=== PATIENT | female | born 1995 | race Caucasian/White ===

== ENCOUNTER 2018-05-09 16:02 | Outpatient (REF) | payer OTHER, SELFPAY ==
--- NOTE | 2018-05-09 15:20 | PAPFT_PTH ---
PATIENT: Rosi Rodriguez LOC: [facility] U#:[id number] AGE/SX: 22/F ROOM: RE05/09/[address]: PIERO Mc : 1995 BED: DIS: 05/09/2018 SPEC #: [id number] RECD: 05/09/18 17:37 STATUS: TERESA REJw #: [id number] DAVID: 05/09/18 15:[address]: Loretta Lopez DEPT: [facility] Cytology RECD BY: Carolann Monterroso ENTERED: 05/09/18 17:37 SP TYPE: PAPFT OTHR DR: Rosi Figueroa Tissues: 1 - CX/ENDOCX FOR PAP SMEARS Procedures: PAP THIN PREP/UVM Screening Comments: [id number]
== END 2018-05-09 16:22 ==
LOC: LBN 16:02
PROVIDERS: PCP Nurse Practitioner Family; Visit Provider Nurse Practitioner Family
DX: Z12.4 Encounter for screening for malignant neoplasm of cervix (principal)
CPT/HCPCS: 88142

== ENCOUNTER 2018-05-13 16:09 | Outpatient (REF) | payer OTHER, SELFPAY ==
[2018-05-13 21:45] LABS: Iron 44 ug/dL (50-175); Total Iron Binding Capacity 403 ug/dL (250-450); Transferrin Sat 11 % (15-50)
[2018-05-13 21:59] LABS: Ferritin 18 ng/mL (8-388); Glucose 85 mg/dL (70-100); TSH (W/Ref FT4) 3.11 uIU/mL (0.358-3.74)
[2018-05-13 22:05] LABS: Abs Immature Grans 0.04 k/cumm (0.0-0.09); Absolute Eosinophil Count 0.24 k/cumm (0.0-0.7); Absolute Lymphocyte Count 2.86 k/cumm (1.2-3.4); Absolute Monocyte Count 0.67 k/cumm (0.11-0.7); Basophils % 0.5; Eosinophils % 2.2; HCT 40.4 % (36.0-46.0); HGB 13.1 g/dL (12.0-15.5); Immature Grans % 0.4; Lymphocytes % 25.7; Mean Corp. HGB Concentration 32.4 g/dL (32.0-36.0); Mean Corpuscular Hemoglobin 30.3 pg (27.0-33.0); Mean Corpuscular Volume 93.5 fL (80-95); Mean Platelet Volume 11.3 fL (8.0-11.0); Neutrophils % 65.2; Platelet Count 253 x1000/uL (130-400); RBC 4.32 m/cumm (4.00-5.20); RBC Distribution Width 12.4 % (11.7-14.6); White Blood Cell Count 11.11 k/cumm (4.4-10.8)
[2018-05-13 22:19] LABS: Absolute Basophil Count 0.06 k/cumm (0.0-0.2); Absolute Neutrophil Count 7.24 k/cumm (1.2-6.7)
== END 2018-05-13 16:29 ==
LOC: NCHCN 16:09
PROVIDERS: PCP Nurse Practitioner Family; Visit Provider Nurse Practitioner Family
DX: E16.2 Hypoglycemia, unspecified (principal); K30 Functional dyspepsia; R07.9 Chest pain, unspecified; R53.83 Other fatigue; J31.0 Chronic rhinitis; J30.9 Allergic rhinitis, unspecified; F41.8 Other specified anxiety disorders; G43.909 Migraine, unspecified, not intractable, without status migrainosus
CPT/HCPCS: 82947; 82728; 83540; 83550; 84443; 85025

== ENCOUNTER 2018-07-12 16:25 | Outpatient (REF) | payer OTHER, SELFPAY ==
[2018-07-12 22:01] LABS: Iron 88 ug/dL (50-175)
== END 2018-07-12 16:45 ==
LOC: NCHCN 16:25
PROVIDERS: PCP Nurse Practitioner Family; Visit Provider Nurse Practitioner Family
DX: E61.1 Iron deficiency (principal); E16.2 Hypoglycemia, unspecified; R07.9 Chest pain, unspecified; K30 Functional dyspepsia
CPT/HCPCS: 83540

== ENCOUNTER 2019-06-15 13:24 | Outpatient (RCR) | payer OTHER, SELFPAY ==
[2019-06-15 15:01] LABS: ALT 17 U/L (14-59); AST 17 U/L (15-37); Albumin 4.2 g/dL (3.4-5.0); Alkaline Phosphatase 72 U/L (46-116); Anion Gap 11.3 mmol/L (3-11); BUN 12 mg/dL (7-18); Bilirubin, Total 0.3 mg/dL (0.2-1.0); CO2 25.7 mmol/L (21.0-32.0); CREATININE 0.93 mg/dL (0.55-1.02); Calcium 8.9 mg/dL (8.5-10.1); Chloride 105 mmol/L (98-107); Glucose 111 mg/dL (74-106); Potassium 3.7 mmol/L (3.5-5.1); Sodium 142 mmol/L (136-145); TSH (W/Ref FT4) 2.05 uIU/mL (0.36-3.74); Total Protein 7.4 g/dL (6.4-8.2); Vitamin B12 465 pg/mL (193-986)
[2019-06-15 15:03] LABS: Abs Immature Grans 0.01 k/cumm (0.0-0.09); Absolute Basophil Count 0.06 k/cumm (0.0-0.2); Absolute Eosinophil Count 0.17 k/cumm (0.0-0.7); Absolute Lymphocyte Count 2.44 k/cumm (1.2-3.4); Absolute Monocyte Count 0.42 k/cumm (0.11-0.7); Absolute Neutrophil Count 4.29 k/cumm (1.2-6.7); Basophils % 0.8; Eosinophils % 2.3; HCT 41.5 % (36.0-46.0); HGB 13.7 g/dL (12.0-15.5); Immature Grans % 0.1; Mean Corpuscular Hemoglobin 30.4 pg (27.0-33.0); Monocytes % 5.7; Neutrophils % 58.1; Platelet Count 257 x1000/uL (130-400); RBC 4.51 m/cumm (4.00-5.20); RBC Distribution Width 12.4 % (11.7-14.6); White Blood Cell Count 7.39 k/cumm (4.4-10.8)
[2019-06-15 15:16] LABS: Hemoglobin A1C 5.2 % (4.5-6.2)
[2019-06-15 15:17] LABS: Iron 68 ug/dL (50-170); Total Iron Binding Capacity 330 ug/dL (250-450); Transferrin Sat 21 % (15-50)
== END 2019-07-04 23:59 | disposition home or self-care (01) ==
LOC: INF 13:24
PROVIDERS: PCP Nurse Practitioner Family; Visit Provider Nurse Practitioner Family
DX: R42 Dizziness and giddiness (principal); R25.1 Tremor, unspecified; R07.9 Chest pain, unspecified; R53.83 Other fatigue; K30 Functional dyspepsia
CPT/HCPCS: 36415; 80053; 82607; 83036; 83540; 83550; 83735; 84443; 85025

== ENCOUNTER 2019-07-14 16:44 | Outpatient (REF) | payer OTHER, SELFPAY | END 2019-07-14 17:04 | LOC: LBN 16:44 | PROVIDERS: PCP Nurse Practitioner Family; Visit Provider Nurse Practitioner Family | DX: R30.0 Dysuria (principal) | CPT/HCPCS: 87086 ==

== ENCOUNTER 2019-08-10 15:35 | Outpatient (REF) | payer OTHER, SELFPAY ==
--- NOTE | 2019-08-10 15:00 | ENDOMET_PTH ---
PATIENT: Rosi Rodriguez LOC: [facility] U#:[id number] AGE/SX: 23/F ROOM: RE08/10/[address]: Marques Barr MD : 1995 BED: DIS: 08/10/2019 SPEC #: [id number] RECD: 08/10/19 16:12 STATUS: TERESA REQ #: [id number] DAVID: 08/10/19 15:[address]: Marques Barr DEPT: Surgical Specimen RECD BY: Carolann Monterroso ENTERED: 08/10/19 16:13 SP TYPE: Endomet OTHR DR: Rosi Figueroa Tissues: 1 - ENDOMETRIUM BX/EMIL Procedures: GROSS AND MICRO LEVEL 4 Comments: [id number]
== END 2019-08-10 15:55 ==
LOC: LBN 15:35
PROVIDERS: PCP Nurse Practitioner Family; Visit Provider Obstetrics & Gynecology
DX: N85.00 Endometrial hyperplasia, unspecified (principal); N93.9 Abnormal uterine and vaginal bleeding, unspecified
CPT/HCPCS: 88305

== ENCOUNTER 2019-08-14 10:21 | Outpatient (RCR) | payer OTHER, SELFPAY ==
[2019-08-14 13:29] LABS: Abs Immature Grans 0.02 k/cumm (0.0-0.09); Absolute Basophil Count 0.05 k/cumm (0.0-0.2); Absolute Eosinophil Count 0.18 k/cumm (0.0-0.7); Absolute Monocyte Count 0.46 k/cumm (0.11-0.7); Absolute Neutrophil Count 5.33 k/cumm (1.2-6.7); Basophils % 0.6; Eosinophils % 2.2; HCT 38.2 % (36.0-46.0); HGB 12.5 g/dL (12.0-15.5); Immature Grans % 0.2 %; Lymphocytes % 25.8; Mean Corp. HGB Concentration 32.7 g/dL (32.0-36.0); Mean Corpuscular Hemoglobin 30.6 pg (27.0-33.0); Mean Corpuscular Volume 93.6 fL (80-95); Mean Platelet Volume 11.3 fL (8.0-11.0); Monocytes % 5.7; Neutrophils % 65.5; Platelet Count 260 x1000/uL (130-400); RBC 4.08 m/cumm (4.00-5.20); RBC Distribution Width 12.6 % (11.7-14.6); White Blood Cell Count 8.14 k/cumm (4.4-10.8)
[2019-08-14 14:45] LABS: PTT Activated 26.4 sec (21.0-31.4); Prothrombin Time 10.3 sec (9.3-11.0)
== END 2019-09-02 23:59 | disposition home or self-care (01) ==
LOC: INF 10:21
PROVIDERS: PCP Nurse Practitioner Family; Visit Provider Obstetrics & Gynecology
DX: N93.8 Other specified abnormal uterine and vaginal bleeding (principal)
CPT/HCPCS: 36415; 85027; 85007; 85576; 85610; 85730

== ENCOUNTER 2019-09-15 07:53 | Emergency (ER) | payer OTHER, SELFPAY ==
[2019-09-15 08:04] VITALS: BP 118/65; PULSE 120; RESP 15; TEMP 36.6; O2SAT 97
--- NOTE | 2019-09-15 08:14 | DI.US_ITS ---
EXAM: US LOWER EXTREMITY VENOUS LT CLINICAL HISTORY: leg pain TECHNIQUE: Left lower extremity venous ultrasound performed using grayscale, color-flow, and spectra l Doppler analysis. COMPARISON: No exams were available for comparison FINDINGS: The left common femoral, femoral and popliteal veins demonstrate normal compressibility, augmentation , and color Doppler. The posterior tibial veins are patent. The saphenofemoral junction is unremarkab le. No evidence of a muller cyst. IMPRESSION: No DVT. DATA REPOSITORY:
--- NOTE | 2019-09-15 08:17 | W.ED.GENAD ---
Discharge Plan Disposition Patient Disposition: HOME Condition: Stable Discharge Details Chief Complaint: GenMedical Clinical Impression: Left leg pain Primary Care Provider: Rosi Figueroa ED Provider: Alejandra Tam Home Meds and New Rx's Prescriptions: No Action topiramate [Topamax] 25 mg tablet 25 mg PO HS PRNRF: 0 multivitamin [Daily Multiple] 1 EACH tablet 1 ea PO DAILY RF: 0 epinephrine [EpiPen 2-Bhavesh] 0.3 MG/0.3 ML auto-injector 0.3 mg IM PRN PRNRF: 0 Claritin-D 12 Hour 5-120 mg tablet extended release 12 hr 1 tab PO DAILY PRN (Reason: allergy symptoms) RF: 0 Discharge Instructions Instructions: Leg Pain (ED) Additional Instructions: Follow up with primary care provider in 3-5 days. Return to ED sooner if any worsening or concerns. Increase oral fluids. Please take Tylenol or Ibuprofen with food every 4-6 hours as needed for pain and swelling. Try ice, stretches. Referrals: Rosi Figueroa [Primary Care Provider] - Medical Decision Making 23-year-old female presents with left posterior thigh pain which is gotten worse over the last 2 days patient states that she had a hard time sleeping last night due to the pain. She denies any trauma heavy lifting or swelling. Initial work-up includes x-ray and an ultrasound to rule out DVT. 0900: Spoke with Elissa and trell who reports preliminary ultrasound result of negative for DVT, superficial thrombosis, or Willson's cyst. No edema. X-rays obtained and I have personally viewed them and showed no acute pathology or fracture or dislocation. Patient to be discharged home with instructions to take ibuprofen or Tylenol every 4-6 hours as needed for pain, apply ice if needed and do stretches. Strict return instructions given, verbalized understanding. Differential diagnosis includes muscle strain, DVT, Delmi Lockhart, occult fracture, osteoarthritis to the hip. EXAM: XR FEMUR LT CLINICAL HISTORY: leg pain. TECHNIQUE: 2D digital imaging was performed. COMPARISON: No exams were available for comparison FINDINGS: BONES: No acute fracture is present. No bony destructive lesion is seen. Visualized portion of knee and hip joints are unremarkable. SOFT TISSUE: Normal. IMPRESSION: Unremarkable radiographs of the left femur. HPI General Mode of arrival: ambulatory. Date/Time Provider Initiated Documentation: 09/15/19 08:01. Limitations to Documentation: no limitations. Information obtained by: patient. HPI Narrative: 23-year-old female presents with left posterior thigh pain which has gotten worse over the last couple days. Patient denies any injury, long trips. She is not on control and she does occasionally smoke. She denies any swelling. She denies any back pain or heavy lifting. There is no lesion or swelling noted she states that pain gets worse upon standing. Related Data Home Medications Medication Instructions Recorded Confirmed multivitamin [Daily Multiple] 1 ea PO DAILY 01/14/17 09/15/19 epinephrine [EpiPen 2-Bhavesh] 0.3 mg IM PRN PRN 04/05/17 09/15/19 loratadine 5 mg-pseudoephedrine ER 1 tab PO DAILY PRN 07/14/19 09/15/19 120 mg tablet,extended release,12hr topiramate 25 mg tablet 25 mg PO HS PRN tab-cap 07/14/19 09/15/19 Allergies Allergy/AdvReac Type Severity Reaction Status Date / Time apple Allergy Intermediate Verified 09/15/19 08:07 banana Allergy Mild Verified 09/15/19 08:07 luna Allergy Mild Verified 09/15/19 08:07 No Known Drug Allergies Allergy Verified 09/15/19 08:07 Environmental Allergy Mild Watery, Uncoded 09/15/19 08:07 itchy eyes, sneezing General Stated Complaint: GenMedical LISA: 3 Review of Systems Narrative: Constitutional: Negative for weight loss, alert and oriented, well groomed, normal body habitus, appears comfortable. HEENT: Denies trauma, headaches, blurry vision, nasal discharge, sore throat, trouble swallowing. Chest: Denies chest pain, palpitations, irregular rhythm, hypertension. Respiratory: Denies Shortness of breath, cough, hemoptysis. GI: Denies abdominal pain, nausea, vomiting, diarrhea, constipation. : Denies dysuria, hematuria, flank pain, rectal bleeding. Neuro: Denies dizziness, blurry vision, weakness, syncope, headache or facial numbness. Hematologic: Denies easy bruising, intolerance to heat or cold, hair loss. [facility] Medical History Contraception (Acute 07/23/16) Migraines (Chronic) Tobacco use (Acute 09/07/14) Surgical History section (03/06/16) distress 2nd stage Cyst Removal on Foot Family History Mother Uterine cancer Grandfather Alzheimer's dementia Grandmother Breast cancer Great Grandfather Alzheimer's dementia Grandfather Heart disease Paternal Aunt Heart disease Paternal Uncle Heart disease Paternal Grandmother Myocardial infarction Social History Smoking/Tobacco Use Status: Former Tobacco Use Alcohol Intake: current Alcohol Intake frequency: holidays/special occasions only Drug use: Never Substance use type: does not use Seatbelt use: always Do you feel safe at home: Yes Do you feel safe in your relationship?: Yes History History 1 Para 1 Hx # Term Pregnancies Multiple births Hx # Pregnancies Ectopic pregnancies AB induced Hx Number of Living Children AB spontaneous Exam Narrative Exam Narrative: Constitutional: Allert and oriented x3. Appears stated age. Normal body habitus. Head: Normocephalic, no trauma. Eyes: Pupils PERRLA, Red reflex noted, EOM's intact. Eyelids symmetrical withour lesions, discharge, or swelling. ENT: Bilateral TM's WNL, External ear normal to inspection, no mastoid TTP, swelling, or erythema, Nasal turbinates WNL, no nasal discharge. Normal dentition, Posterior pharynx WNL, no exudate. Chest: RRR, Normal S1, S2, distal pulses intact. Resp: Lungs clear to auscultation bilaterally, no wheezes, rales, or rhonchi. Musculoskeletal: Normal gait, 5/5 strength to all four extremities. Distal pedal pulses intact no erythema or swelling noted no deformity or trauma. Skin: No suspicious rashes or lesions. Capillary refill ?2 sec. Neurologic: Cranial nerves II-XII intact. Alert and oriented x 3. DTR's intact. Hematologic/Lymphatic: No ecchymosis, no lymphadenopathy. Course Vital Signs Vital signs: Vital Signs Temperature 36.6 C 09/15/19 08:04 Pulse 120 H 09/15/19 08:04 Respiratory Rate 15 09/15/19 08:04 Blood Pressure 118/65 09/15/19 08:04 Pulse Oximetry 97 09/15/19 08:04 Temperature 36.6 C 09/15/19 08:04 Temperature Source Tympanic 09/15/19 08:04 Pulse 120 H 09/15/19 08:04 Respiratory Rate 15 09/15/19 08:04 Blood Pressure 118/65 09/15/19 08:04 Blood Pressure Position Sitting 09/15/19 08:04 Pulse Oximetry 97 09/15/19 08:04 Oxygen Delivery Method Room Air 09/15/19 08:04 Oxygen Flow Rate 0 09/15/19 08:04 Pain Level 5 09/15/19 08:04
[2019-09-15] MEDS: Ibuprofen 600 MG TAB PO (08:30)
[2019-09-15 08:31] VITALS: RESP 18
--- NOTE | 2019-09-15 09:19 | DI.RAD_ITS ---
EXAM: XR FEMUR LT CLINICAL HISTORY: leg pain. TECHNIQUE: 2D digital imaging was performed. COMPARISON: No exams were available for comparison FINDINGS: BONES: No acute fracture is present. No bony destructive lesion is seen. Visualized portion of knee a nd hip joints are unremarkable. SOFT TISSUE: Normal. IMPRESSION: Unremarkable radiographs of the left femur. DATA REPOSITORY: RADIATION DOSE DELIVERED:
[2019-09-15 09:58] VITALS: BP 116/78; PULSE 77; RESP 16; TEMP 36.6; O2SAT 98
== END 2019-09-15 09:58 | disposition home or self-care (01) ==
PROVIDERS: Emergency Provider Registered Nurse Emergency; PCP Nurse Practitioner Family
DX: M79.652 Pain in left thigh (principal)
CPT/HCPCS: 73552; 81025; 99284; 93971

== ENCOUNTER 2020-01-15 09:39 | Outpatient (CLI) | payer OTHER, SELFPAY ==
[2020-01-17 21:10] LABS: SARS-CoV-2 Specimen Source Nasal/Nares
[2020-01-17 21:11] LABS: SARS-CoV-2 RNA Undetected (Undetected)
== END 2020-01-15 09:59 ==
LOC: LBO 09:40 → NCHCO 09:48 → LBO 13:34
PROVIDERS: PCP Nurse Practitioner Family; Visit Provider Nurse Practitioner Family
DX: Z11.59 Encounter for screening for other viral diseases (principal)
CPT/HCPCS: U0003

== ENCOUNTER 2020-01-16 13:38 | Outpatient (RCR) | payer OTHER, SELFPAY ==
[2020-01-16 16:35] LABS: HCG Quant, Pregnancy 80 mIU/mL (1-3)
== END 2020-02-02 23:59 | disposition home or self-care (01) ==
LOC: INF 13:38
PROVIDERS: PCP Nurse Practitioner Family; Visit Provider Nurse Practitioner Family
DX: Z32.01 Encounter for pregnancy test, result positive (principal)
CPT/HCPCS: 84702

== ENCOUNTER 2020-02-26 02:35 | Outpatient (CLI) | payer OTHER, SELFPAY ==
[2020-02-26 16:33] LABS: Abs Immature Grans 0.03 10^3/uL (0.0-0.06); Absolute Basophil Count 0.04 10^3/uL (0.0-0.2); Absolute Eosinophil Count 0.08 10^3/uL (0.0-0.7); Absolute Lymphocyte Count 2.16 10^3/uL (1.2-3.4); Absolute Monocyte Count 0.51 10^3/uL (0.1-0.8); Absolute Neutrophil Count 6.68 10^3/uL (1.2-6.7); Basophils % 0.4; Eosinophils % 0.8; HCT 38.1 % (36.0-46.0); HGB 12.8 g/dL (11.2-15.7); Immature Grans % 0.3; Lymphocytes % 22.7; MCH 30.3 pg (27.0-33.0); MCHC 33.6 % (32.0-36.0); MCV 90.3 fL (80-95); MPV 11.1 fL (8.0-11.0); Monocytes % 5.4; Neutrophils % 70.4; Nucleated RBC 0 %; Platelet Count 216 10^3/uL (130-400); RBC 4.22 10^6/uL (3.93-5.22); RDW 11.9 % (11.7-14.6); RDW-SD 38.9 fL
[2020-02-26 17:24] LABS: TSH (W/Ref FT4) 1.21 uIU/mL (0.36-3.74)
[2020-02-28 09:44] LABS: HIV-1/2 Ag & Ab Screen Negative (Negative)
[2020-02-28 11:09] LABS: Rubella IgG Ab (UVM) Positive (See Note); Varicella IgG Antibody Positive (See Note)
[2020-02-28 13:32] LABS: Syphilis Total Ab w/Reflex Nonreactive (Nonreactive)
[2020-02-28 16:08] LABS: Hepatitis B Surface Ag Negative (Negative)
[2020-02-28 16:50] LABS: Hepatitis C Ab w Rflx HCV PCR Negative (Negative)
== END 2020-02-26 02:55 ==
PROVIDERS: PCP Nurse Practitioner Family; Visit Provider Advanced Practice Midwife
DX: Z34.91 Encounter for supervision of normal pregnancy, unspecified, first trimester (principal)
CPT/HCPCS: 36415; 86787; 86803; 86850; 86900; 86901; 87340; 87389; 84443; 85025; 86762; 86780

== ENCOUNTER 2020-02-26 16:11 | Outpatient (REF) | payer OTHER, SELFPAY ==
[2020-02-26 17:56] LABS: *AMPHETAMINES SCREEN URINE Negative (Negative); *BARBITURATES SCREEN URINE Negative (Negative); *BENZODIAZEPINES SCREEN URINE Negative (Negative); Cannabinoids THC Negative (Negative); Cocaine Screen,Urine Negative (Negative); METHADONE URINE SCREEN Negative (Negative); OPIATES URINE SCREEN Negative (Negative); Tricyclic Antidepressants Negative (Negative)
[2020-02-28 13:45] LABS: Chlamydia Result Negative (Negative); GC Result Negative (Negative)
[2020-03-01 11:46] LABS: Buprenorphine Negative; Norbuprenorphine Negative
== END 2020-02-26 16:31 ==
LOC: LBN 16:11
PROVIDERS: PCP Nurse Practitioner Family; Visit Provider Advanced Practice Midwife
DX: Z34.91 Encounter for supervision of normal pregnancy, unspecified, first trimester (principal)
CPT/HCPCS: 80307; 87491; 87591; 87086

== ENCOUNTER 2020-05-01 02:25 | Outpatient (CLI) | payer OTHER, MEDICAID, SELFPAY ==
--- NOTE | 2020-05-01 07:52 | DI.US_ITS ---
EXAM: US OB 2-3 TRIMESTER W MOD CLINICAL HISTORY: routine pnc,Z34.90 TECHNIQUE: Ultrasound performed using standard protocol. COMPARISON: US US LOWER EXTREMITY VENOUS LT from 09/15/2019 FINDINGS: Ob ultrasound was performed utilizing 2nd trimester protocol. Gestational age of 19 weeks 1 day and EDC of September 24, 2020. Placenta is anterior with no evidence of placenta previa. There is visually a normal quantity of amni otic fluid. heart rate was 144 BPM. anomaly screen is within normal limits as per the attached checklist. Please note however that additional scanning of the cranial and facial structures is needed due to limitations of this examina tion. The patient is scheduled to return on May 08 for additional scanning to complete the feta l anomaly screen. IMPRESSION: DATA REPOSITORY:
== END 2020-05-01 02:45 ==
PROVIDERS: PCP Nurse Practitioner Family; Visit Provider Advanced Practice Midwife
DX: Z34.92 Encounter for supervision of normal pregnancy, unspecified, second trimester (principal)
CPT/HCPCS: 76805

== ENCOUNTER 2020-05-08 01:01 | Outpatient (CLI) | payer OTHER, MEDICAID, SELFPAY ==
--- NOTE | 2020-05-08 | DI.US_ITS ---
EXAM: US OB F/U FACIAL/LVOT/RVOT CLINICAL HISTORY: F/U SURVEY. TECHNIQUE: Transabdominal obstetrical ultrasound performed. COMPARISON: US US OB 2-3 TRIMESTER W MOD from 05/01/2020 FINDINGS: Transabdominal obstetrical ultrasound performed. FINDINGS: Number of fetuses: One. position: Cephalic. heart rate: 153 bpm. Placental location: Anterior no evidence of previa. BIOMETRIC DATA: Amniotic fluid index: Amount of fluid is within normal limits. ANATOMICAL SURVEY: The cranial and facial features were evaluated sonographically and are unremarkable. The nose, lips and palate are unremarkable. ventricles and posterior fos sa contents are unremarkable. IMPRESSION: 1. Single live intrauterine gestation as above. 2. Normal anatomic survey. DATA REPOSITORY:
== END 2020-05-08 01:21 ==
PROVIDERS: PCP Nurse Practitioner Family; Visit Provider Advanced Practice Midwife
DX: Z34.92 Encounter for supervision of normal pregnancy, unspecified, second trimester (principal)
CPT/HCPCS: 76815

== ENCOUNTER 2020-07-03 02:12 | Outpatient (RCR) | payer OTHER, MEDICAID, SELFPAY ==
[2020-07-01 07:46] LABS: HCT 32.8 % (36.0-46.0); HGB 11.1 g/dL (11.2-15.7); MCH 32.4 pg (27.0-33.0); MCHC 33.8 % (32.0-36.0); MCV 95.6 fL (80-95); Platelet Count 195 10^3/uL (130-400); RBC 3.43 10^6/uL (3.93-5.22); RDW 12.3 % (11.7-14.6); RDW-SD 42.7 fL; WBC 9.17 10^3/uL (4.4-10.8)
[2020-07-01 07:47] LABS: Glucose,1 Hr (Glucola) 143 mg/dL (80-140)
[2020-07-03] MEDS: Normal Saline Flush 10 ML SYR IVP (07:00)
[2020-07-03 08:38] LABS: Glucose 1 Hour 102 mg/dL
[2020-07-03 10:57] LABS: Glucose 3 Hour 60 mg/dL
== END 2020-07-04 23:59 | disposition home or self-care (01) ==
LOC: INF 02:12
PROVIDERS: PCP Nurse Practitioner Family; Visit Provider Advanced Practice Midwife
DX: O24.410 Gestational diabetes mellitus in pregnancy, diet controlled (principal)
CPT/HCPCS: 36415; 82950; 85027; 82951

== ENCOUNTER 2020-08-22 11:37 | Outpatient (RCR) | payer OTHER, MEDICAID, SELFPAY ==
[2020-08-22 11:56] LABS: Abs Immature Grans 0.28 10^3/uL (0.0-0.06); Absolute Basophil Count 0.07 10^3/uL (0.0-0.2); Basophils % 0.5; Eosinophils % 0.7; HCT 34.8 % (36.0-46.0); HGB 11.8 g/dL (11.2-15.7); Immature Grans % 2.1; Lymphocytes % 19.1; MCH 32.2 pg (27.0-33.0); MCHC 33.9 % (32.0-36.0); MCV 95.1 fL (80-95); MPV 11.1 fL (8.0-11.0); Monocytes % 5.9; Neutrophils % 71.7; Nucleated RBC 0 %; Platelet Count 185 10^3/uL (130-400); RBC 3.66 10^6/uL (3.93-5.22); RDW 12.1 % (11.7-14.6); RDW-SD 42.6 fL; WBC 13.53 10^3/uL (4.4-10.8)
[2020-08-22 11:57] LABS: Absolute Eosinophil Count 0.09 10^3/uL (0.0-0.7); Absolute Lymphocyte Count 2.58 10^3/uL (1.2-3.4)
[2020-08-22 12:04] LABS: ALT 19 U/L (14-59); AST 14 U/L (15-37); Albumin 3.1 g/dL (3.4-5.0); Alkaline Phosphatase 84 U/L (46-116); Anion Gap 12.7 mmol/L (3-11); BUN 9 mg/dL (7-18); Bilirubin, Total 0.3 mg/dL (0.2-1.0); CO2 21.3 mmol/L (21.0-32.0); CREATININE 0.6 mg/dL (0.55-1.02); Calcium 9.1 mg/dL (8.5-10.1); Chloride 103 mmol/L (98-107); Glucose 74 mg/dL (74-106); Sodium 137 mmol/L (136-145); Total Protein 7.2 g/dL (6.4-8.2)
== END 2020-09-01 23:59 | disposition home or self-care (01) ==
LOC: INF 11:37
PROVIDERS: PCP Nurse Practitioner Family; Visit Provider Obstetrics & Gynecology
DX: O26.893 Other specified pregnancy related conditions, third trimester (principal); R51.9 Headache, unspecified
CPT/HCPCS: 36415; 80053; 85025

== ENCOUNTER 2020-08-22 18:21 | Outpatient (REF) | payer OTHER, MEDICAID, SELFPAY ==
[2020-08-22 18:20] LABS: COMMENT (LAB VIEW ONLY) 16.96 mg/dL; PROTEIN < 6.0 mg/dL
== END 2020-08-22 18:22 | disposition home or self-care (01) ==
LOC: LBN 18:21
PROVIDERS: PCP Nurse Practitioner Family; Visit Provider Obstetrics & Gynecology
DX: O24.410 Gestational diabetes mellitus in pregnancy, diet controlled (principal)
CPT/HCPCS: 82565; 84156

== ENCOUNTER 2020-08-27 15:43 | Outpatient (REF) | payer OTHER, MEDICAID, SELFPAY ==
[2020-08-27 17:01] LABS: *AMPHETAMINES SCREEN URINE Negative (Negative); *BARBITURATES SCREEN URINE Negative (Negative); *BENZODIAZEPINES SCREEN URINE Negative (Negative); Cannabinoids THC Negative (Negative); Cocaine Screen,Urine Negative (Negative); METHADONE URINE SCREEN Negative (Negative); OPIATES URINE SCREEN Negative (Negative)
[2020-08-27 17:16] LABS: Tricyclic Antidepressants Negative (Negative)
[2020-08-30 22:11] LABS: Buprenorphine Negative ng/mL (Cutoff: 5.0); Norbuprenorphine Negative ng/mL (Cutoff: 2.5)
== END 2020-08-27 15:44 | disposition home or self-care (01) ==
LOC: LBN 15:43
PROVIDERS: PCP Nurse Practitioner Family; Visit Provider Obstetrics & Gynecology Gynecology
DX: Z34.93 Encounter for supervision of normal pregnancy, unspecified, third trimester (principal); Z36.85 Encounter for antenatal screening for Streptococcus B; Z3A.36 36 weeks gestation of pregnancy
CPT/HCPCS: 80307; 87081

== ENCOUNTER 2020-09-04 10:59 | Outpatient (CLI) | payer OTHER, MEDICAID, SELFPAY | END 2020-09-04 11:00 | disposition home or self-care (01) | LOC: DME 11:01 | PROVIDERS: PCP Nurse Practitioner Family | DX: Z39.1 Encounter for care and examination of lactating mother (principal) | CPT/HCPCS: E0602 ==

== ENCOUNTER 2020-09-17 08:04 | Inpatient (IN) | payer OTHER, MEDICAID, SELFPAY ==
--- NOTE | 2020-09-16 08:07 | HPE_ITS ---
Date of service: 09/16/20 Time of Service: 08:19 Assessment and Plan Assessment and plan (1) : Status: Acute (2) Previous section: Status: Chronic Assessment and plan: Patient is a 24-year-old 2 para 1 with history of previous low transverse section. She had care at [facility] and declines trial of labor. She requests repeat section. The risk benefits alternatives of repeat section were explained to the patient including risk of infection, bleeding, injury to surrounding organs, risk of anesthesia, risk of thromboembolism and other complications. She also request sterilization for contraception. The risks of this along with his failure rate were explained the patient and she was consented for repeat section with bilateral salpingectomy. She will have preoperative laboratory studies included Covid testing with the appropriate quarantine. She will be admitted for procedure September 17, 2020. OB-HPI Labor/Delivery History of Present Illness Reason for Visit: Repeat section with tubal Chief Complaint: Scheduled Section , Inidcation for Scheduled C- Section: Previous .. ALPHONSE Calculator Estimated Delivery Date Method Current WG Current Estimate 09/22/20 LMP (Certain) 39w 1d Other Estimates 09/24/20 Ultrasound #1 38w 6d History of Present Expected Delivery Route/Plan Repeat c/s @ 39 weeks, start w/CNM care then transfer to MD care ~30 wks [place] Robert Rodriguez (his first child) Specific Issues/Plan 1. Declines optional labs. NEEDS TO SIGN DECLINATION OF SAME @ 2nd PNV. 03/25/20 Declination signed. al 2. History of migraine - magnesium recommendation 3. Smoker - quit with . 4. Elevated 1-hr GTT 143 - 3-hr GTT 85, 102, 120, 60 5. Desires repeat C/S, declines TOLAC Narrative: Patient is a 24-year-old 2 para 1 with history of prior low transverse section. She had care [facility] and opted for repeat section with bilateral salpingectomy for management. She has had essentially uncomplicated course. Risk benefits alternatives of section versus trial of labor had all been explained to the patient and she preferred repeat section. She did have an elevated 1 hour glucose tolerance test with a normal 3-hour. Informed Consent Informed Consent: Section Delivery Review of Systems All systems reviewed & are unremarkable except as noted in HPI and below Constitutional Comments: Normal discomforts of Eyes Eyes: Reports system reviewed and no additional complaints, except as documented Cardiovascular Cardiovascular: Reports system reviewed and no additional complaints, except as documented, Denies chest pain at rest, Denies chest pain with activity, Denies irregular heart rhythm and Denies dyspnea Respiratory Respiratory: Reports system reviewed and no additional complaints, except as documented, Denies chest congestion, Denies cough and Denies dyspnea Gastrointestinal Gastrointestinal: Reports as per HPI Genitourinary Genitourinary: Reports system reviewed and no additional complaints, except as documented Psychiatric Psychiatric: Reports system reviewed and no additional complaints, except as documented PFSH Medical History Back pain affecting Contraception (07/23/16) Migraines Tobacco use (09/07/14) Surgical History section (03/06/16) distress 2nd stage Cyst Removal on Foot Family History Mother Uterine cancer Grandfather Alzheimer's dementia Grandmother Breast cancer Great Grandfather Alzheimer's dementia Grandfather Heart disease Paternal Aunt Heart disease Paternal Uncle Heart disease Paternal Grandmother Myocardial infarction Social History Smoking/Tobacco Use Status: Former Tobacco Use Smoking risk assessment performed?: Yes Alcohol Intake: current Alcohol Intake frequency: holidays/special occasions only Details: none with knowledge of al Drug use: Never Substance use type: does not use Seatbelt use: always Do you feel safe at home: Yes Do you feel safe in your relationship?: Yes History History 2 Para 1 Hx # Term Pregnancies 1 Multiple births 0 Hx # Pregnancies 0 Ectopic pregnancies 0 AB induced 0 Hx Number of Living Children 1 AB spontaneous 0 Past Pregnancies Del. Date GA/Weeks # Outcome Route Wgt Sex Labor Lgth Anesthes ia Location Prov Complic 06/05/16 42 Successful 6 lb 15 oz Female [address] Sims Delivery Date: 06/05/16 Induction for post dates, long labor. FHR decellerations. Vivienne Santoyo [facility] Home Medications and Allergies Allergies Allergy/AdvReac Type Severity Reaction Status Date / Time apple Allergy Intermediate Verified 08/27/20 14:58 banana Allergy Mild Verified 08/27/20 14:58 luna Allergy Mild Verified 08/27/20 14:58 No Known Drug Allergies Allergy Verified 08/27/20 14:58 Environmental Allergy Mild Watery, Uncoded 08/27/20 14:58 itchy eyes, sneezing Home Medications Medication Instructions Recorded Confirmed Type epinephrine [EpiPen 2-Bhavesh] 0.3 mg IM PRN PRN 04/05/17 09/03/20 History loratadine 5 mg-pseudoephedrine ER 1 tab PO DAILY PRN 07/14/19 09/03/20 History 120 mg tablet,extended release,12hr vitamin with calcium 1 tab PO DAILY #90 tab 04/23/20 09/03/20 Rx no.72-iron 27 mg-folic acid 1 mg tablet famotidine 40 mg tablet 40 mg PO DAILY #60 tab 07/23/20 09/03/20 Rx qyhjhtsemi-mjkfkolbvtdmp-jgrpgmyv 1 cap PO Q6H PRN #14 cap 08/22/20 09/03/20 Rx 50 mg-300 mg-40 mg capsule breast pump #1 ea 09/03/20 09/03/20 Rx Exam Physical Exam Vital Signs Reviewed: Yes Notable Details: Blood pressures remained stable throughout the course of her care Detailed Labor and Delivery Exam Moran Score: Cervical Points Exam 0 1 2 3 Dilation Closed 1-2cm 3-4 cm 5-6cm Effacement 0-30% 40-50% 60-70% 80% Consistency Firm Medium Soft Station -3 -2 -1,0 +1,+2 Position Posterior Mid Anterior Fetus A Heart Rate Baseline: 140 HEENT Exam HEENT Exam: Normal Respiratory Exam Respiratory Exam: Normal Cardiovascular Exam Cardiovascular Exam: Normal Detailed Abdominal Exam Abdominal: Present soft Comments: Gravid, estimated weight 7-1/2 pounds, vertex Extremities Exam Extremities Exam: Normal Neurological Exam Neurological Exam: Normal Psychiatric Exam Psychiatric Exam: Normal Risk Assessment Risk for Shoulder Dystocia Historical/Initial OB: NEGATIVE FOR: Pelvic Abnormality, Pre- BMI>30, Previous Shoulder Dystocia or Previous Macrosomia Risk for Pre-Eclampsia Date Initiated/Initials: iob 02/26/20 al Yes, if one or more: NEGATIVE FOR: Hx Pre-E/Gest HTN, Chronic HTN, Multiple Gestation, Pre-gestational DM, Renal Disease, Systemic Lupus or APA Syndrome Yes, if 2 or more: NEGATIVE FOR: Nulliparity, Age>= 35 yrs, >10yr btwn pregnancies, BMI>30, ethinicty, Mother/Sister w/ Pre-E or Previous IUGR Risk for Post- Hemorrhage Initial: NEGATIVE FOR: Multiple Gestation, Previous PPH, Known Clotting Deficiency, Grand Multiparity or Anticoagulation Risks Reviewed Risks Reviewed Upon Admission: Yes
[2020-09-17 06:13] VITALS: BP 107/76; PULSE 108; RESP 18; TEMP 36.7; O2SAT 100
[2020-09-17 06:42] LABS: HCT 36.1 % (36.0-46.0); MCH 31.8 pg (27.0-33.0); MCHC 33.2 % (32.0-36.0); MCV 95.8 fL (80-95); MPV 11.3 fL (8.0-11.0); Platelet Count 161 10^3/uL (130-400); RBC 3.77 10^6/uL (3.93-5.22); RDW 12.3 % (11.7-14.6); RDW-SD 43.3 fL; WBC 10.81 10^3/uL (4.4-10.8)
[2020-09-17] MEDS: Sodium Citrate 30 ML CUP PO (07:09)
[2020-09-17] MEDS: AZITHROMYCIN 500 MG in Normal Saline 250 ML 250 MG IVPB (07:09)
[2020-09-17] MEDS: ceFAZolin 2 GM/50 ML BAG IVPB (07:45)
--- NOTE | 2020-09-17 08:25 | FALL_PTH ---
PATIENT: Rosi Rodriguez LOC: OBS U#:[id number] AGE/SX: 24/F ROOM: OBS.303 RE09/17/[address]: Yanira Zaidi DO : 1995 BED: A DIS: 09/20/2020 SPEC #: [id number] RECD: 09/17/20 12:35 STATUS: TERESA REQ #: [id number] DAVID: 09/17/20 08:[address]: Yanira Zaidi DEPT: Surgical Specimen RECD BY: Carolann Monterroso ENTERED: 09/17/20 12:36 SP TYPE: Fall OTHR DR: Trisha Camejo Tissues: 1 - FALLOPIAN TUBE (STERILIZATION) Procedures: GROSS AND MICRO LEVEL 2 Comments: [id number]
--- NOTE | 2020-09-17 08:54 | W.PM.OBCSECT ---
Date of service: 09/17/20 Time of Service: 09:54 Operative Note Operative Note Delivery Method: Scheduled DATE OF PROCEDURE: 09/17/20 PRE-OP DIAGNOSES: Prior section, declines trial of labor. Undesired fertility POST-OP DIAGNOSES: same PROCEDURE: Repeat low transverse section with bilateral salpingectomy SURGEON: Yanira Zaidi Wheelabrator Operator: Chantell Thornton Anesthesia: spinal Estimated blood loss (mL): 600 Pathology: other (Bilateral fallopian tubes) Complications: None Patient was transported to: floor Patient's condition: stable Indications: Prior section with undesired fertility Findings: Normal tubes, ovaries, uterus. Minimal adhesions of bladder to the anterior lower uterine segment. Delivery of a viable male weight and Apgars per nursing Procedure Description: Patient is a 24-year-old female with a history of prior low transverse uterine incision section. She had care which was uncomplicated at [facility]. She requested section and had undesired fertility requested permanent sterilization. Risk benefits and alternatives of repeat section with bilateral salpingectomy were explained the patient in full informed consent was obtained. She was taken the operating suite with an IV running where she is placed in the seated position spinal anesthesia administered, tested and found to be adequate. She has been then placed in dorsal supine position with leftward tilt and prepped and draped in usual sterile fashion. Puri catheter had been inserted for continuous bladder drainage. Pfannenstiel skin incision was made through her previous scar and carried down to the underlying fascia. Fascia was nicked in the midline and the fascial incision extended laterally. At this point peritoneum was identified tented up and entered sharply and the peritoneal incision extended superiorly and inferiorly. At this point the bladder blade was inserted and with meticulous sharp dissection adhesions of the bladder to the anterior lower uterine segment were meticulously dissected. A low transverse uterine incision was made with a scalpel and extended bluntly laterally. The vertex was delivered atraumatically and shoulders followed with ease. Three-vessel cord was noted clamped x2 and the was handed handed off to the waiting pediatric group. At this point cord blood sample was obtained and the placenta was manually expressed from the uterus. The uterus was then exteriorized and cleared of all clot and debris. Uterine incision was closed with 2 layers of 0 Vicryl in a running locked fashion followed by an imbricated layer. Uterine incision was found to be hemostatic. At this point attention was turned to the left fallopian tube which was elevated and cautery transected for complete removal and similar procedure was carried out on the right fallopian tube. These pedicles were found to be hemostatic. Uterine incision was reinspected and found to be hemostatic and the uterus was then returned to the abdomen. The abdomen is then irrigated with copious amounts of normal saline and pedicles and uterine incision again inspected and found to be hemostatic. At this point the fascial incision was closed using 0 Vicryl suture in a running cutaneous tissue irrigated copious amounts of normal saline and reapproximated with 3-0 Vicryl. The skin edge was reapproximated with a subcuticular stitch of 4-0 undyed Monocryl and Steri-Strips were placed. Uterus was firm and 3 cm below the umbilicus. Patient was then returned to the center with ongoing skin to skin care for her . Complications: None apparent EBL: 600 mL Fluids: Crystalloid per anesthesia Urine output: 300 cc clear yellow urine. Infant Gender: Male
[2020-09-17 09:30] VITALS: BP 107/64; PULSE 91; RESP 16; TEMP 36.5; O2SAT 98
[2020-09-17 10:00] VITALS: BP 104/66; PULSE 92; RESP 18; O2SAT 98
[2020-09-17] MEDS: oxyCODONE 5 mg/Acetaminophen 325 mg TAB PO ×4 (10:44→23:54)
[2020-09-17 11:00] VITALS: BP 95/62; PULSE 88; RESP 16; TEMP 36.5; O2SAT 97
[2020-09-17] MEDS: Ketorolac 30 MG/ML VIAL IVP ×2 (15:10→21:08)
[2020-09-17 16:00] VITALS: BP 102/62; PULSE 82; RESP 16; TEMP 36.4; O2SAT 97
[2020-09-17] MEDS: Docusate Sodium 100 MG CAP PO (19:53)
[2020-09-17 19:58] VITALS: BP 102/62; PULSE 80; RESP 16; TEMP 36.7; O2SAT 98
[2020-09-18] VITALS (7 sets, daily range): BP systolic 103–121; BP diastolic 64–72; PULSE 68–86; RESP 16–20; TEMP 36.2–37.1; O2SAT 98–100
[2020-09-18] MEDS: oxyCODONE 5 mg/Acetaminophen 325 mg TAB PO ×5 (05:52→21:44)
[2020-09-18 08:21] LABS: Abs Immature Grans 0.12 10^3/uL (0.0-0.06); Absolute Basophil Count 0.03 10^3/uL (0.0-0.2); Absolute Eosinophil Count 0.13 10^3/uL (0.0-0.7); Absolute Lymphocyte Count 2.05 10^3/uL (1.2-3.4); Absolute Monocyte Count 0.69 10^3/uL (0.1-0.8); Absolute Neutrophil Count 6.98 10^3/uL (1.2-6.7); Basophils % 0.3; Eosinophils % 1.3; HCT 31.4 % (36.0-46.0); HGB 10.2 g/dL (11.2-15.7); Immature Grans % 1.2; Lymphocytes % 20.5; MCH 31.9 pg (27.0-33.0); MCHC 32.5 % (32.0-36.0); MCV 98.1 fL (80-95); MPV 11.2 fL (8.0-11.0); Monocytes % 6.9; Neutrophils % 69.8; Nucleated RBC 0 %; Platelet Count 139 10^3/uL (130-400); RDW 12.6 % (11.7-14.6); RDW-SD 45.1 fL
--- NOTE | 2020-09-18 08:36 | W.PM.OBPNV1 ---
Date of service: 09/18/20 Time of Service: 08:37 Assessment and Plan Assessment and plan (1) Status post repeat low transverse section: Status: Acute Assessment and plan: Postoperative day #1. Doing well. Puri catheter out. Ambulating, tolerating regular diet. Exclusively breast-feeding with strong bonding observed. Continue routine postoperative care Subjective Subjective Patient comments: No complaints, Pain well controlled and Tolerating diet [place] baby status: Doing well and Nursing well feeding status: Exclusively breast feeding Exam Physical Exam Vital signs: Temp Pulse Resp BP Pulse Ox 97.9 F 85 18 109/71 98 09/18/20 05:04 09/18/20 05:04 09/18/20 05:04 09/18/20 05:04 09/17/20 19:58 Constitutional Constitutional: no acute distress and average body habitus Respiratory Exam Respiratory Exam: Normal Cardiovascular Exam Cardiovascular Exam: Normal Abdominal Exam Abdomen: Tender Extremities Exam Extremity Exam: Normal; negative Calf Tenderness Results Hemoglobin/Hematocrit: Hgb 10.2 g/dL (11.2-15.7) L 09/18/20 08:03 Hct 31.4 % (36.0-46.0) L 09/18/20 08:03 Abnormal Lab Findings: Abnormal Labs 09/17/20 09/18/20 06:25 08:03 WBC 10.81 H RBC 3.77 L 3.20 L Hgb 10.2 L Hct 31.4 L MCV 95.8 H 98.1 H MPV 11.3 H 11.2 H Absolute Neutrophils 6.98 H
[2020-09-18] MEDS: Ketorolac 30 MG/ML VIAL IVP (09:28)
[2020-09-18] MEDS: Normal Saline Flush 10 ML SYR IVP (09:29)
[2020-09-18] MEDS: Docusate Sodium 100 MG CAP PO (09:48)
--- NOTE | 2020-09-18 14:29 | OBPPV_ITS ---
Date of service: 09/18/20 Time of Service: 14:29 Assessment and Plan Assessment and plan (1) Status post repeat low transverse section: Start date: 09/18/20 Start time: 14:32 Status: Acute Assessment and plan: Postoperative day #1 status post repeat low transverse section with bilateral salpingectomy that was uncomplicated. Patient is having some left lower quadrant discomfort. Hemodynamically appears to be stable. She is voiding without difficulty. She is passing flatus. I will check a repeat CBC this afternoon to confirm stability. If she has had a significant drop, may consider imaging with ultrasound to evaluate for fluid collection versus hematoma. Patient will have pressure to that area with a cold compress. Continue to monitor closely Subjective Subjective Interval history: Asked to see and evaluate patient for left lower quadrant discomfort. She has been ambulatory, up in the shower and had onset of left lower quadrant pain. She felt a little bit poorly and was escorted back to bed for evaluation. Vital signs are stable. On examination her abdomen is soft, she has bowel sounds. She has been passing gas with a good appetite. She does complain of sharp, burning and pulling sensation in the left lower quadrant. She has not slept well in the past evening. Patient comments: Incisional pain, Tolerating diet and Flatus present [place] baby status: Doing well feeding status: Exclusively breast feeding Exam Physical Exam Vital signs: Temp Pulse Resp BP Pulse Ox 97.9 F 84 20 107/70 98 09/18/20 14:27 09/18/20 14:27 09/18/20 14:27 09/18/20 14:27 09/18/20 14:27 Constitutional Constitutional: mild distress HEENT Exam HEENT Exam: Normal Respiratory Exam Respiratory Exam: Normal Cardiovascular Exam Cardiovascular Exam: Normal Abdominal Exam Abdomen: Tender Comments: Incision is clean dry and intact. She does have tenderness in the left lower quadrant at the left aspect of her incision. There is a small amount of fullness in that area but no discrete area of hematoma that I can appreciate. Fascia appears to be intact. Extremities Exam Extremity Exam: Normal and Calf Tenderness Comment: 1+ bilateral lower extremity edema Results Hemoglobin/Hematocrit: Hgb 10.2 g/dL (11.2-15.7) L 09/18/20 08:03 Hct 31.4 % (36.0-46.0) L 09/18/20 08:03 Abnormal Lab Findings: Abnormal Labs 09/17/20 09/18/20 06:25 08:03 WBC 10.81 H RBC 3.77 L 3.20 L Hgb 10.2 L Hct 31.4 L MCV 95.8 H 98.1 H MPV 11.3 H 11.2 H Absolute Neutrophils 6.98 H
[2020-09-18 14:47] LABS: Abs Immature Grans 0.13 10^3/uL (0.0-0.06); Absolute Basophil Count 0.04 10^3/uL (0.0-0.2); Absolute Eosinophil Count 0.16 10^3/uL (0.0-0.7); Absolute Lymphocyte Count 2.33 10^3/uL (1.2-3.4); Absolute Monocyte Count 0.67 10^3/uL (0.1-0.8); Absolute Neutrophil Count 6.76 10^3/uL (1.2-6.7); Basophils % 0.4; Eosinophils % 1.6; HGB 10.5 g/dL (11.2-15.7); Immature Grans % 1.3; Lymphocytes % 23.1; MCH 32.3 pg (27.0-33.0); MCHC 32.8 % (32.0-36.0); MCV 98.5 fL (80-95); MPV 10.9 fL (8.0-11.0); Monocytes % 6.6; Nucleated RBC 0 %; Platelet Count 144 10^3/uL (130-400); RBC 3.25 10^6/uL (3.93-5.22); RDW 12.7 % (11.7-14.6); RDW-SD 45.8 fL; WBC 10.09 10^3/uL (4.4-10.8)
[2020-09-18] MEDS: Ibuprofen 600 MG TAB PO ×2 (16:06→21:45)
[2020-09-19 02:00] VITALS: BP 115/65; PULSE 89; RESP 17; TEMP 36.9; O2SAT 97
[2020-09-19] MEDS: oxyCODONE 5 mg/Acetaminophen 325 mg TAB PO ×4 (02:00→21:04)
[2020-09-19] MEDS: Ibuprofen 600 MG TAB PO ×3 (04:35→21:04)
--- NOTE | 2020-09-19 08:08 | OBPPV_ITS ---
Date of service: 09/19/20 Time of Service: 08:08 Assessment and Plan Assessment and plan (1) Status post repeat low transverse section: Status: Acute Assessment and plan: Postoperative day #2 status post repeat low transverse section with bilateral salpingectomy. Doing well today. Pain is better controlled. Is working on breast-feeding. We will continue to ambulate. Anticipate routine care today. Possible discharge tomorrow. Transition to oral pain medication today. Subjective Subjective Interval history: Patient seen and examined this morning. Eating is diminished. She has been ambulatory. Her biggest complaint of is left-sided pulling and burning sensation. She is passing gas. She is tolerating regular diet. She is working on breast-feeding but also supplementing as baby has had a 9% weight loss. Patient comments: Incisional pain, Tolerating diet and Flatus present [place] baby status: Doing well and Supplemental feeding going well [place] feeding status: Breast and formula feeding Exam Physical Exam Vital signs: Temp Pulse Resp BP Pulse Ox 98.4 F 89 17 115/65 97 09/19/20 02:00 09/19/20 02:00 09/19/20 02:00 09/19/20 02:00 09/19/20 02:00 Constitutional Constitutional: no acute distress and cooperative HEENT Exam HEENT Exam: Normal Respiratory Exam Respiratory Exam: Normal Cardiovascular Exam Cardiovascular Exam: Normal Abdominal Exam Abdomen: Tender Comments: Abdomen soft, incision clean, dry, intact. No evidence of ecchymosis or hematoma. Fundal Exam Fundus: Below Umbilicus and Firm Extremities Exam Extremity Exam: Normal and Edema (1+ bilateral); negative Calf Tenderness Neurological Exam Neurological Exam: Normal Psychiatric Exam Psychiatric Exam: Normal Results Hemoglobin/Hematocrit: Hgb 10.5 g/dL (11.2-15.7) L 09/18/20 14:40 Hct 32.0 % (36.0-46.0) L 09/18/20 14:40 Abnormal Lab Findings: Abnormal Labs 09/17/20 09/18/20 09/18/20 06:25 08:03 14:40 WBC 10.81 H RBC 3.77 L 3.20 L 3.25 L Hgb 10.2 L 10.5 L Hct 31.4 L 32.0 L MCV 95.8 H 98.1 H 98.5 H MPV 11.3 H 11.2 H Absolute Neutrophils 6.98 H 6.76 H
[2020-09-19 09:00] VITALS: BP 119/75; PULSE 87; RESP 16; TEMP 36.6; O2SAT 98
[2020-09-19] MEDS: Docusate Sodium 100 MG CAP PO ×2 (09:05→18:50)
[2020-09-19] MEDS: Acetaminophen 325 MG TAB 650 MG PO (12:18)
[2020-09-19 14:29] VITALS: BP 111/65; PULSE 81; RESP 16; TEMP 36.7; O2SAT 97
[2020-09-19 20:00] VITALS: BP 118/76; PULSE 99; RESP 18; TEMP 36.8
[2020-09-20] MEDS: oxyCODONE 5 mg/Acetaminophen 325 mg TAB PO ×4 (02:27→17:53)
[2020-09-20 08:00] VITALS: BP 114/71; PULSE 84; RESP 14; TEMP 37; O2SAT 98
[2020-09-20] MEDS: Ibuprofen 600 MG TAB PO ×2 (10:28→16:52)
[2020-09-20] MEDS: Docusate Sodium 100 MG CAP PO (10:28)
--- NOTE | 2020-09-20 14:29 | W.PM.OBPNV1 ---
Date of service: 09/20/20 Time of Service: 14:29 Assessment and Plan Assessment and plan (1) Status post repeat low transverse section: Status: Acute Assessment and plan: Postoperative day #3, status post primary low transverse section with bilateral salpingectomy for contraceptive management. She is doing well. She does have some discomfort and fatigue, she is deciding as to whether she will stay tonight or be discharged home later today. Overall she is doing quite well. Subjective Subjective Interval history: Patient seen and examined post day #3. She has been ambulating, tolerating regular diet and oral pain medication with stable vital signs. She does have some left sided burning and discomfort. She is somewhat fatigued. She is working hard on breast-feeding. Patient comments: Incisional pain, Tolerating diet and Flatus present Patient's Mood: Appropriate [place] baby status: Doing well and Strong Bonding Observed Exam Physical Exam Vital signs: Temp Pulse Resp BP Pulse Ox 98.6 F 84 14 114/71 98 09/20/20 08:00 09/20/20 08:00 09/20/20 08:00 09/20/20 08:00 09/20/20 08:00 Constitutional Constitutional: no acute distress and cooperative HEENT Exam HEENT Exam: Normal Neck Exam Neck Exam: Normal Respiratory Exam Respiratory Exam: Normal Cardiovascular Exam Cardiovascular Exam: Normal Abdominal Exam Abdomen: Tender Comments: Incision clean, dry, intact Fundal Exam Fundus: Below Umbilicus and Firm Extremities Exam Extremity Exam: Edema (1+ bilateral); negative Calf Tenderness Skin Exam Skin Exam: Normal Neurological Exam Neurological Exam: Normal DetailedPsychiatric Exam Psych Exam: Normal Affect, Normal Thougth Process, Cooperative, Good Insight and Good Judgement Results Hemoglobin/Hematocrit: Hgb 10.5 g/dL (11.2-15.7) L 09/18/20 14:40 Hct 32.0 % (36.0-46.0) L 09/18/20 14:40 Abnormal Lab Findings: Abnormal Labs 09/17/20 09/18/20 09/18/20 06:25 08:03 14:40 WBC 10.81 H RBC 3.77 L 3.20 L 3.25 L Hgb 10.2 L 10.5 L Hct 31.4 L 32.0 L MCV 95.8 H 98.1 H 98.5 H MPV 11.3 H 11.2 H Absolute Neutrophils 6.98 H 6.76 H
--- NOTE | 2020-09-20 14:36 | W.PM.OBDISCH ---
Date of service: 09/20/20 Time of Service: 14:36 DS: Diagnosis Discharge Diagnosis (1) Status post repeat low transverse section: Status: Acute Discharge Plan Disposition Patient Disposition: HOME Condition: Good Discharge Details Reason For Visit: DELIVERY Admit Date/Time: 09/17/20 08:04 Admit Provider: Yanira Zaidi Attending Provider: Yanira Zaidi Primary Care Provider: Trisha Camejo Hospital Course Hospital Course: Patient is a 24-year-old female who had care at [facility]. She had a scheduled repeat section with bilateral salpingectomy for contraceptive management. She had uncomplicated postoperative course and was discharged home postoperative day #3, ambulating, tolerating regular diet and oral pain medication with stable vital signs. She is exclusively breast-feeding her son who has been circumcised. She will be seen in the office in approximately 2 weeks time Home Meds and New Rx's Prescriptions: New docusate sodium 100 mg tablet 100 mg PO BID PRN PRNQty: 20 RF: 0 oxycodone-acetaminophen 5-325 mg Tablet 1 tab PO Q4H PRN PRNQty: 10 RF: 0 ibuprofen [IBU] 600 mg Tablet 600 mg PO Q6H PRN PRNQty: 60 RF: 1 Continued PrePlus 27 mg iron- 1 mg tablet 1 tab PO DAILY Qty: 90 RF: 3 yhufrjhtin-zhxiamkozvhcl-xufh [Fioricet] 50-300-40 mg capsule 1 cap PO Q6H PRN (Reason: pain) Qty: 14 RF: 0 epinephrine [EpiPen 2-Bhavesh] 0.3 MG/0.3 ML auto-injector 0.3 mg IM PRN PRNRF: 0 famotidine [Pepcid] 40 mg tablet 40 mg PO DAILY Qty: 60 RF: 1 Claritin-D 12 Hour 5-120 mg tablet extended release 12 hr 1 tab PO DAILY PRN (Reason: allergy symptoms) RF: 0 No Action (DME) breast pump Device See Rx Instructions .ROUTE .MEDSUPPLY Qty: 1 RF: 0 Discharge Instructions Stand Alone Forms: BC Discharge Instruc Activity:: Activity as Tolerated Equipment/Supplies:: No Equipment Needed Diet:: As Tolerated Discharge Orders Discharge Orders: Discharge Order (Routine); Ordered 09/20/20 Ordered By: Yanira Zaidi OB:DS Summary Contraception Discussed Contraception Discussed: Yes, [place] Gender-Baby A: Male weight: 6 lb 12.291 oz Status at Discharge Functional status at discharge: independent ambulation Overall status at discharge: patient is progressing back to baseline Mental Status: mental status grossly normal Speech and Movement: speech and movement normal Mood: congruent mood Affect: normal affect Exam Physical Exam Vital signs: Temp Pulse Resp BP Pulse Ox 98.6 F 84 14 114/71 98 09/20/20 08:00 09/20/20 08:00 09/20/20 08:00 09/20/20 08:00 09/20/20 08:00 Constitutional Comments: See physical exam from progress note dated 09/20/2020 [facility] Medical History Back pain affecting Contraception (07/23/16) Migraines Tobacco use (09/07/14) Surgical History section (03/06/16) distress 2nd stage Cyst Removal on Foot Status post repeat low transverse section With bilateral salpingectomy Family History Mother Uterine cancer Grandfather Alzheimer's dementia Grandmother Breast cancer Great Grandfather Alzheimer's dementia Grandfather Heart disease Paternal Aunt Heart disease Paternal Uncle Heart disease Paternal Grandmother Myocardial infarction Social History Smoking/Tobacco Use Status: Former Tobacco Use Smoking risk assessment performed?: Yes Alcohol Intake: current Alcohol Intake frequency: holidays/special occasions only Details: none with knowledge of al Drug use: Never Substance use type: does not use Seatbelt use: always Do you feel safe at home: Yes Do you feel safe in your relationship?: Yes History History 2 Para 1 Hx # Term Pregnancies 1 Multiple births 0 Hx # Pregnancies 0 Ectopic pregnancies 0 AB induced 0 Hx Number of Living Children 1 AB spontaneous 0 Past Pregnancies Del. Date GA/Weeks # Outcome Route Wgt Sex Labor Lgth Anesthesia Location Prov Complic 06/05/16 42 Successful 6 lb 15 oz Female [address] Sims Delivery Date: 06/05/16 Induction for post dates, long labor. FHR decellerations. Vivienne Santoyo DS: Data Vitals/I&O Vitals and I&O: Vital Signs Temperature 98.6 F 09/20/20 08:00 Temperature Source Oral 09/18/20 07:05 Pulse 84 09/20/20 08:00 Pulse Rhythm Regular 09/20/20 08:00 Respiratory Rate 14 09/20/20 08:00 Respiratory Depth Normal 09/17/20 06:13 Blood Pressure 114/71 09/20/20 08:00 Blood Pressure Mean 85 09/20/20 08:00 Pulse Oximetry 98 09/20/20 08:00 Oxygen Delivery Method Room Air 09/18/20 07:05 Oxygen Flow Rate 0 09/18/20 07:05 Pain Level 7 09/20/20 12:27 Intake & Output 09/19/20 09/20/20 09/20/20 23:59 11:59 23:59 Other: Urine Color Pale
[2020-09-20] MEDS: Acetaminophen 325 MG TAB 650 MG PO ×2 (16:51→16:57)
== END 2020-09-20 18:10 | disposition home or self-care (01) | DRG 784 ==
PROVIDERS: Admitting Provider Obstetrics & Gynecology; PCP Nurse Practitioner Family; Visit Provider Obstetrics & Gynecology
PROC: 10D00Z1 Extraction of Products of Conception, Low, Open Approach (ICD-10-PCS; CPT 59514; principal; 2020-09-17 07:30)
DX: O34.211 Maternal care for low transverse scar from previous cesarean delivery (principal); O99.354 Diseases of the nervous system complicating childbirth; Z37.0 Single live birth; N85.8 Other specified noninflammatory disorders of uterus; Z3A.39 39 weeks gestation of pregnancy; G43.909 Migraine, unspecified, not intractable, without status migrainosus; Z30.2 Encounter for sterilization
CPT/HCPCS: 59514; 58700; 36415; 85027; 86850; 86900; 86901; 85025; 88302; J0456; J0690; J1885; J2370; J2405; J3010

== ENCOUNTER 2022-02-05 17:09 | Outpatient (REF) | payer MEDICAID, SELFPAY | END 2022-02-05 17:10 | disposition home or self-care (01) | LOC: LBN 17:09 | PROVIDERS: PCP Nurse Practitioner Family; Visit Provider Nurse Practitioner Family | DX: R30.0 Dysuria (principal) | CPT/HCPCS: 87086 ==

== ENCOUNTER 2024-08-11 15:44 | Outpatient (REF) | payer OTHER, SELFPAY ==
--- NOTE | 2024-08-11 15:20 | PAPFT_PTH ---
PATIENT: Rosi Rodriguez LOC: [facility] U#:[id number] AGE/SX: 28/F ROOM: RE08/11/[address]: Yanira Zaidi DO : 1995 BED: DIS: 08/11/2024 SPEC #: [id number] RECD: 08/11/24 17:50 STATUS: TERESA REQ #: [id number] DAVID: 08/11/24 15:[address]: Yanira Zaidi DEPT: [facility] Cytology RECD BY: Carolann Monterroso ENTERED: 08/11/24 17:50 SP TYPE: PAPFT MARIMAR DR: Unknown,Unknown Tissues: 1 - CX/ENDOCX FOR PAP SMEARS Procedures: PAP THIN PREP/UVM Screening HPV DNA PROBE Comments: [id number] (HPV 16 & 18/45)
== END 2024-08-11 15:45 | disposition home or self-care (01) ==
LOC: LBN 15:44
PROVIDERS: Visit Provider Obstetrics & Gynecology
DX: Z11.51 Encounter for screening for human papillomavirus (HPV) (principal); Z01.419 Encounter for gynecological examination (general) (routine) without abnormal findings; R87.618 Other abnormal cytological findings on specimens from cervix uteri
CPT/HCPCS: 88142; 87624

== ENCOUNTER 2024-10-01 15:48 | Emergency (ER) | payer OTHER, SELFPAY ==
[2024-10-01 15:52] VITALS: BP 116/79; PULSE 102; RESP 20; TEMP 36.9; O2SAT 99
--- NOTE | 2024-10-01 16:09 | W.ED.GENAD ---
Discharge Plan Disposition Patient Disposition: Home Condition: Stable Discharge Details Clinical Impression: Acute viral pharyngitis Primary Care Provider: Franca Rodriguez ED Provider: Michelle Cervantes Home Meds and New Rx's Prescriptions: No Action progesterone micronized [Prometrium] 100 mg capsule 100 mg PO QAM 90 Days Qty: 90 3RF cholecalciferol (vitamin D3) 25 mcg (1,000 unit) capsule 25 mcg PO DAILY ferrous sulfate [FeroSul] 325 mg (65 mg iron) tablet 325 mg PO DAILY buspirone 5 mg tablet 5 mg PO DIRECTED triamcinolone acetonide 0.1 % cream 1 applic topical DAILY PRN fluticasone propionate 50 mcg/actuation spray,suspension 1 spray intranasal DAILY PRN Rx Instructions: administer into each nostril hydroxyzine HCl 25 mg tablet 25 mg PO DIRECTED PRN cetirizine [Zyrtec] 10 mg tablet 10 mg PO DAILY PRN epinephrine [EpiPen 2-Bhavesh] 0.3 MG/0.3 ML auto-injector 0.3 mg IM PRN PRN ibuprofen [IBU] 600 mg Tablet 600 mg PO Q6H PRN PRNQty: 60 1RF Discharge Instructions Instructions: Sore Throat, Adult ED Additional Instructions: You were seen in the emergency department today for evaluation of a sore throat and cough. In our department he had a full physical examination performed, had rapid strep, COVID, and influenza testing that was negative, and received a dose of dexamethasone for sore throat symptom management. As we discussed, this can improve symptoms of sore throat for approximately 24 hours, and hopefully by that time your body will have continued fighting the virus that is causing your symptoms and you will start to notice improvement. It is normal for sore throat to return suddenly after this medication wears off. We sent all rapid strep tests for culture to ensure that this was not a false negative. You will be contacted with any positive results. No contact means that the results were negative and you do not have to make any changes. Please continue to maintain good hydration and nutrition, use [id number] medication such as Tylenol and ibuprofen as well as topical medications such as cough drops, honey and tea, etc. to manage her symptoms. Please follow-up with your primary care provider in the next few days to discuss this visit and any symptoms that change, worsen, or persist. Thank you for allowing us to be part of your care. HPI General Mode of arrival: ambulatory. Date/Time Provider Initiated Documentation: 10/01/24 15:49. Limitations to Documentation: no limitations. Information obtained by: patient and old records reviewed. HPI Narrative: HPI: This is a 28-year-old female patient presenting for evaluation of sore throat and cough. The patient has 4 days of symptoms, feels like her throat is raw from coughing, has been bringing up clear sputum and today noted trace blood streaking the sputum. She reports no fever, has been using Tylenol and ibuprofen for management of pain, last dose at noon today. She reports that she has been able to tolerate water and feels adequately hydrated, has not had any GI symptoms such as nausea, vomiting, or diarrhea. She states that she has been using honey and tea, and has had no sick contacts. No reported fever, endorses a mild runny nose, and did have some ear fullness of the right side that has since resolved. Exam: Gen: Awake and alert, in no apparent distress HEENT: Non-icteric sclera, PERRL, bilateral TMs clear. The patient's posterior pharynx has some mild erythema but no tonsillar exudates, swelling, or edema. Full range of motion of the neck, bilateral anterior cervical lymphadenopathy, tender. Neck: Supple Lungs: No apparent respiratory distress, normal respiratory effort. Lung sounds clear and equal bilaterally without wheezing, rhonchi, rales CV: Appears well perfused, heart with regular rate and rhythm, strong distal pulses and no auscultated murmurs Abdomen: Non-distended MSK: Moves 4 extremities without apparent limitation in ROM Skin: Visualized skin without rashes, cyanosis. Neuro: Normal Gait, no obvious focal deficits or facial asymmetry. Speaks in full, clear sentences. Psych: Appropriate for situation. MDM: This is a 28-year-old female patient presenting for evaluation of sore throat and cough. Differential includes but is not limited to viral URI, viral pharyngitis, strep pharyngitis. No focal lung findings or hypoxia to significantly increase my concern for pneumonia, did consider bronchitis. No evidence for otitis media, patient is well-hydrated and have a low concern for metabolic or electrolyte derangements or kidney injury. No evidence of deep space neck infection such as [employer] SAL[employer], RPA. We obtained [id number] strep and COVID/flu testing, and after shared decision-making conversation the patient has elected for a one-time dose of Decadron, 10 mg p.o. ED Course: COVID, influenza, and strep testing negative. Rapid strep was sent for culture for confirmatory testing. I recommended ongoing conservative management, and at this time, the patient has had a full medical evaluation and is safe for discharge to home. They are hemodynamically stable, ambulatory, and tolerating PO. They are understanding of the follow-up plan and return precautions. They left our facility without incident. Michelle Cervantes MD Related Data Home Medications ?Medication ?Instructions ?Recorded ?Confirmed epinephrine 0.3 mg/0.3 mL 0.3 mg IM PRN PRN 04/05/17 10/01/24 injection, auto-injector (EpiPen 2-Bhavesh) ibuprofen 600 mg tablet (IBU) 600 mg PO Q6H PRN PRN #60 tabs 09/20/20 10/01/24 buspirone 5 mg tablet 5 mg PO DIRECTED 06/16/24 10/01/24 cholecalciferol (vitamin D3) 25 25 mcg PO DAILY 06/16/24 10/01/24 mcg (1,000 unit) capsule ferrous sulfate 325 mg (65 mg 325 mg PO DAILY 06/16/24 10/01/24 iron) tablet (FeroSul) fluticasone propionate 50 1 spray intranasal DAILY PRN 06/16/24 10/01/24 mcg/actuation nasal spray,suspension hydroxyzine HCl 25 mg tablet 25 mg PO DIRECTED PRN 06/16/24 10/01/24 triamcinolone acetonide 0.1 % 1 applic topical DAILY PRN 06/16/24 10/01/24 topical cream progesterone micronized 100 mg 100 mg PO QAM 3 months #90 caps 08/11/24 10/01/24 capsule (Prometrium) cetirizine 10 mg tablet (Zyrtec) 10 mg PO DAILY PRN 09/11/24 10/01/24 Previous Rx's ?Medication ?Instructions ?Recorded ibuprofen 600 mg tablet (IBU) 600 mg PO Q6H PRN PRN #60 tabs 09/20/20 progesterone micronized 100 mg 100 mg PO QAM 3 months #90 caps 08/11/24 capsule (Prometrium) Allergies Allergy/AdvReac Type Severity Reaction Status Date / Time apple Allergy Intermediate Itching Verified 10/01/24 16:15 banana Allergy Mild Itching Verified 10/01/24 16:15 luna Allergy Mild Itching Verified 10/01/24 16:15 adhesive tape Allergy Unknown Skin Rash Unverified 10/01/24 16:15 guaifenesin (From Mucinex) AdvReac Severe body Unverified 10/01/24 16:15 paralysis General Stated Complaint: Sorethroat LISA: 4 Course Vital Signs Vital signs: Vital Signs Temperature 36.9 C 10/01/24 15:52 Pulse 102 H 10/01/24 15:52 Respiratory Rate 20 10/01/24 15:52 Blood Pressure 116/79 10/01/24 15:52 Pulse Oximetry 99 10/01/24 15:52 Temperature 36.9 C 10/01/24 15:52 Pulse 102 H 10/01/24 15:52 Respiratory Rate 20 10/01/24 15:52 Blood Pressure 116/79 10/01/24 15:52 Blood Pressure Position Sitting 10/01/24 15:52 Pulse Oximetry 99 10/01/24 15:52 Oxygen Delivery Method Room Air 10/01/24 15:52 Oxygen Flow Rate 0 10/01/24 15:52 Lab/Test Results Lab/Test Results: 10/01/24 16:05 Tonsil - Not Specified Group A Streptococcus Culture - Pending POC Strep Test-MEMO(Rapid) Start: 10/01/24 15:57 Freq: .Rapid Strep Test Status: Active Protocol: Document 10/01/24 16:04 DELON (Rec: 10/01/24 16:04 DELON [id number]) Strep test-MEMO(Rapid)-POC POC-Strep test-MEMO (Rapid) Negative POC-Strep test-MEMO (Rapid) Negative Medical Decision Making Quality:SDOH Health Related Social Needs: No Data to Display PFSH All Active Problems Acute viral pharyngitis (Acute) Heavy menses (Acute) Food allergy (Acute) Adverse food reaction (Acute) Environmental allergies (Acute) Immunization due (Acute) Migraines (Chronic) Tobacco use (Acute 09/07/14) Medical History Back pain affecting Encounter for screening for other viral diseases Positive test Contraception (07/23/16) Surgical History Status post repeat low transverse section With bilateral salpingectomy Previous section section (03/06/16) distress 2nd stage Cyst Removal on Foot Family History Mother Uterine cancer Grandfather Alzheimer's dementia Grandmother Breast cancer Great Grandfather Alzheimer's dementia Grandfather Heart disease Paternal Aunt Heart disease Paternal Uncle Heart disease Paternal Grandmother Myocardial infarction Social History Smoking/Tobacco Use Status: Former Tobacco Use Tobacco: How many years used: 10 Second Hand Exposure: No Smoking risk assessment performed?: Yes Alcohol Intake: current Alcohol Intake frequency: a few times a month Alcohol type: hard liquor Details: none with knowledge of al Drug use: Never Substance use type: does not use Sexually active: Yes Current gender identity: female What type of physical activity do you participate in: regular exercise Seatbelt use: always Do you feel safe at home: Yes Do you feel safe in your relationship?: Yes History History 2 Para 2 Hx # Term Pregnancies 2 Multiple births 0 Hx # Pregnancies 0 Ectopic pregnancies 0 AB induced 0 Hx Number of Living Children 2 AB spontaneous 0 Past Pregnancies Del. Date GA/Weeks # Preg Succ Route Wgt Sex Labor Lgth Anesthesia Location [facility] 06/05/16 42 3146.797 g Female [address] Sims 09/17/20 39 No 3070.253 g Male [facility] [place] Delivery Date: 06/05/16 Last Updated by: Vivienne Hollis CNM Induction for post dates, long labor. FHR decellerations. [place] Delivery Date: 09/17/20 Last Updated by: Yanira Whittington LPN Repeat with bilateral salpingectomy; Robert Sims
[2024-10-01] MEDS: Dexamethasone 4 MG TAB 10 MG PO (16:19)
== END 2024-10-01 16:37 | disposition home or self-care (01) ==
PROVIDERS: Emergency Provider Emergency Medicine; PCP Nurse Practitioner Family
DX: J02.8 Acute pharyngitis due to other specified organisms (principal); Z87.891 Personal history of nicotine dependence
CPT/HCPCS: 87426; 87880; 99283; 87081; J8540